=== PATIENT | female | born 1935 | race Caucasian/White ===

== ENCOUNTER 2019-03-23 06:00 | Day surgery (SDC) | payer OTHER, BC ==
[~2019-03-23] VITALS: Ht 149.9 cm; Wt 67.6 kg
[2019-03-23] MEDS ORDERED: POLYMYXIN 500,000/BACIT.10,000 UNITS in NS IRR 1 L IR ONE (07:24)
[2019-03-23] MEDS ORDERED: CLINDAMYCIN 600 mg/50mL D5W 50 ML IV ONE (07:29)
[2019-03-23] MEDS ORDERED: LR 1,000 ML IV.SOLN IV ONE (07:45)
[2019-03-23] MEDS ORDERED: MIDAZOLAM HCL 5 MG/5 ML VIAL IVP ONE (07:45)
[2019-03-23] MEDS ORDERED: LR 1,000 ML IV SCH (08:46)
[2019-03-23] MEDS ORDERED: ONDANSETRON HCL 4 MG/2 ML VIAL IVP PRN (09:00)
[2019-03-23] MEDS ORDERED: MORPHINE 4 MG/ML INJ. SYRINGE IVP PRN ×3 (09:00)
[2019-03-23] MEDS ORDERED: HYDROcodone/ACETAMIN 5-325 MG TAB (NORCO/ VICODIN) PO PRN ×2 (09:15)
[2019-03-23 12:30] VITALS: BP_SYST 112
--- NOTE | 2019-03-23 12:30 | NUR ---
ADMISSION NOTE Received patient from PACU via gurney. Patient admitted with diagnosis of S/P Hernia Repair. Patient is awake, alert, oriented. Patient oriented to hospital room, call light, toileting, pain management and safety-teach back done. Patient informed that LEX will be her nurse and that their room number is 123A. Personal belongings checked and Belongings List documented. Call light within reach.
--- NOTE | 2019-03-23 13:30 | NUR ---
Initial Physical Assessment: Patient awake, alert and oriented. Stable. I.V. access patent. R abdominal incision with dressing. No other skin issues. Able to move upper and lower extremities. Call light within reach. Safety measures in placed.
[2019-03-23] MEDS: D5/0.45 NS 1,000 ML IV SCH ×2 (14:04→21:39)
[2019-03-23 15:21] VITALS: BP_SYST 144
--- NOTE | 2019-03-23 15:30 | NUR ---
Ambulate: Patient ambulate with walker at the hallway. Tolerated well.
--- NOTE | 2019-03-23 16:35 | NUR ---
rounds: Patient sleeping. No distress noted.
[2019-03-23] MEDS ORDERED: CARV25TA55 PO (17:14)
[2019-03-23] MEDS ORDERED: CARB-15 PO (17:14)
[2019-03-23] MEDS ORDERED: FURO-150 PO (17:21)
[2019-03-23] MEDS ORDERED: SPIR25TA6 PO (17:21)
[2019-03-23] MEDS ORDERED: SACU1TAB4 PO (17:21)
[2019-03-23] MEDS ORDERED: AMAN100C16 PO (17:21)
--- NOTE | 2019-03-23 17:33 | NUR ---
rounds: patient awake and on her cellphone. no distress noted.
[2019-03-23 17:57] VITALS: BP_SYST 144
--- NOTE | 2019-03-23 18:59 | NUR ---
Closing notes: Patient resting on bed. Stable. Needs attended. Denies pain. Call light within reach. Report will be given to car shifter.
--- NOTE | 2019-03-23 19:30 | NUR ---
OPENING NOTE RECEIVED CARE OF PT. PT IS RESTING IN BED, AAOX4, NO S/S OF ACUTE DISTRESS. BREATHING IS UNLABORED TO ROOM AIR. PT DENIES PAIN AT THIS TIME. RIGHT ABDOMINAL INCISION DRESSING IS CLEAN/DRY/INTACT. IVF ARE INFUSING AT ORDERED RATE. PT ORIENTED TO USE OF CALL LIGHT AND ENCOURAGED TO CALL FOR ANY ASSISTANCE. SAFETY PRECAUTIONS ARE IN PLACE: BED IS LOCKED IN LOWEST POSITION, CALL LIGHT IS WITH PT, SIDE RAILS UP X3, BED ALARM ON. WILL MONITOR.
[2019-03-23 20:00] VITALS: BP_SYST 122
--- NOTE | 2019-03-23 20:10 | NUR ---
Pt ambulated to the bathroom and back to bed with standby assist. Gait steady and slow. Pt denies pain or discomfort. Three side rails are up. Call light is with pt and bed alarm is on. Pt was instructed to call for assistance as needed and pt verbalized understanding.
--- NOTE | 2019-03-23 21:39 | NUR ---
IVF BAG CHANGE NEW IVF BAG HUNG. PT ASSISTED TO USE BEDPAN TO URINATE. PERICARE RENDERED. NO S/S OF ACUTE DISTRESS. SAFETY MAINTAINED. WILL MONITOR.
--- NOTE | 2019-03-23 23:21 | NUR ---
PAIN/NORCO PT REPORTING MILD PAIN TO INCISION. NORCO 5-325 MG PO ADMINISTERED. MEDICATION ACTION AND POTENTIAL SIDE EFFECTS EXPLAINED TO PT, PT VERBALIZED UNDERSTANDING. NO S/S OF DISTRESS. SAFETY MAINTAINED. WILL MONITOR.
--- NOTE | 2019-03-24 01:40 | NUR ---
RESTING PT RESTING IN BED WITH EYES CLOSED. VISIBLE SYMMETRICAL RISE AND FALL OF CHEST TO ROOM AIR, BREATHING IS UNLABORED. NO S/S OF ACUTE DISTRESS, NO SIGN OF PAIN, NO FACIAL GRIMACE. SAFETY AND FALL PRECAUTIONS ARE IN PLACE. CALL LIGHT IS WITH PT. WILL MONITOR.
--- NOTE | 2019-03-24 03:25 | NUR ---
RN NOTE: PT RESTING IN BED WITH NO S/S OF ACUTE DISTRESS. VISIBLE RISE AND FALL OF CHEST BILATERALLY TO ROOM AIR. NO SIGN OF PAIN OR DISCOMFORT. IVF INFUSING ORDERED. SAFETY PRECAUTIONS OBSERVED. WILL MONITOR.
--- NOTE | 2019-03-24 05:20 | NUR ---
RN NOTE: PT RESTING IN BED. NO S/S OF ACUTE DISTRESS. BREATHING IS UNLABORED TO ROOM AIR. SAFETY MAINTAINED. WILL MONITOR.
[2019-03-24 05:41] VITALS: BP_SYST 130
[2019-03-24] MEDS: D5/0.45 NS 1,000 ML IV SCH (05:41)
--- NOTE | 2019-03-24 06:56 | NUR ---
CLOSING NOTE PT RESTING IN BED, VSS, ALL NEEDS ATTENDED. PAIN MANAGED. ALL NEEDS MET DURING SHIFT. SAFETY MAINTAINED. WILL ENDORSE TO DAY SHIFT RN.
--- NOTE | 2019-03-24 07:35 | NUR ---
opening note patient is resting in bed, alert and oriented, assessment completed, educated solid waste division supervisor light system and plan of care, patient verbalized understanding, IV fluids running, patient denies any pain at this time, fall/safety precautions in place.
[2019-03-24 08:00] VITALS: BP_SYST 134
[2019-03-24 08:27] VITALS: BP_SYST 134
--- NOTE | 2019-03-24 09:47 | NUR ---
Nutrition Update Uday Scale 17 noted. Pt admitted for unilateral inguinal hernia without obstruction or gangrene. Diet: regular BMI: 30.1 kg/m2 RD to follow per nutrition care standards.
== END 2019-03-24 08:41 | disposition home or self-care (01) ==
LOC: SDS 06:00 → SMU 06:00 → UNDOADMIN 06:00 → EDSTATUS 10:00 → SMU 11:11 → SDS 03-24 08:41
PROVIDERS: ATTEND Colon & Rectal Surgery
DX: K40.91 Unilateral inguinal hernia, without obstruction or gangrene, recurrent (principal); K21.9 Gastro-esophageal reflux disease without esophagitis; G20 Parkinson's disease; G89.29 Other chronic pain; G62.9 Polyneuropathy, unspecified; I25.119 Atherosclerotic heart disease of native coronary artery with unspecified angina pectoris; E66.3 Overweight; I50.9 Heart failure, unspecified; I13.0 Hypertensive heart and chronic kidney disease with heart failure and stage 1 through stage 4 chronic kidney disease, or unspecified chronic kidney disease; N18.3 Chronic kidney disease, stage 3 (moderate); Z95.810 Presence of automatic (implantable) cardiac defibrillator; Z79.899 Other long term (current) drug therapy; Z90.710 Acquired absence of both cervix and uterus; Z90.721 Acquired absence of ovaries, unilateral
CPT/HCPCS: 49520; 87081 ×2; C1781; J2250; J3490; J7120